=== PATIENT | female | born 1995 | race Caucasian/White ===

== ENCOUNTER → 2017-03-21 23:22 | Observation (INO) ==
[2017-03-21 19:05] LABS: Hematocrit 34.2 % (35.3-44.9); Hemoglobin 11.1 g/dL (11.5-15.4); Immature Granulocytes % 1.3 % (0-4); Lymphocytes % 8.9 %; Mean Corpuscular HGB Conc 32.5 g/dL (31.6-35.5); Mean Corpuscular Hemoglobin 26.7 pg (28.0-33.3); Mean Corpuscular Volume 82.4 fL (83.0-100.0); Mean Platelet Volume 10.3 fL (9.4-12.4); Platelet Count 294 K/mcL (140-400); Red Blood Count 4.15 M/mcL (3.82-4.97); Red Cell Distribution Width 14.4 % (11.5-14.5); Segmented Neutrophils % 84.4 %
[2017-03-21 19:06] LABS: Basophils # 0.1 K/mcL (0.0-0.2); Basophils % 0.3 %; Eosinophils # 0.1 K/mcL (0.0-0.6); Eosinophils % 0.3 %; Lymphocytes # 1.8 K/mcL (0.6-4.6); Monocytes % 4.8 %; Neutrophils # 16.7 K/mcL (1.6-8.9)
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
[2017-03-21 19:16] LABS: Prothrombin Time 10.4 Seconds (9.4-12.1)
[2017-03-21 19:18] LABS: Activated Partial Thrombo Time 23.2 Seconds (26.0-36.0)
[2017-03-21 20:49] LABS: Kleihauer-Betke-Fet Hgb Qnt 0 mL FMH (0-0)
[~2017-03-21 23:22] MED LIST: Acetaminophen 325 MG TABLET PO ONE
== END | disposition home or self-care (01) ==
LOC: 1NENULAB

== ENCOUNTER 2017-07-04 06:00 | Inpatient (IN) ==
[2017-07-04] MEDS ORDERED: Famotidine 20 MG/2 ML VIAL IVP PRN (06:15)
[2017-07-04] MEDS ORDERED: Metoclopramide 10 MG/2 ML VIAL IVP PRN (06:15)
[2017-07-04] MEDS ORDERED: Oxytocin 20 units/ LR 1000 mL 20 UNIT/1,000 ML BAG IVC SCH (06:15)
[2017-07-04] MEDS ORDERED: Ringers Solution, Lactated 1,000 ML IVC SCH (06:15)
[2017-07-04] MEDS ORDERED: miSOPROStol 25 MCG TABLET VG PRN (06:15)
[2017-07-04] MEDS ORDERED: Penicillin G Potassium 5,000,000 UNIT in D5% in Water (Mini-Bag+) 100 ML IVPB ONE (06:30)
[2017-07-04 07:00] LABS: Basophils # 0.1 K/mcL (0.0-0.2); Basophils % 0.4 %; Eosinophils # 0.1 K/mcL (0.0-0.6); Eosinophils % 0.8 %; Hematocrit 35.7 % (35.3-44.9); Hemoglobin 11.5 g/dL (11.5-15.4); Immature Granulocytes % 0.5 % (0-4); Lymphocytes # 2.9 K/mcL (0.6-4.6); Lymphocytes % 17.9 %; Mean Corpuscular HGB Conc 32.2 g/dL (31.6-35.5); Mean Corpuscular Volume 77.6 fL (83.0-100.0); Mean Platelet Volume 11.3 fL (9.4-12.4); Monocytes % 6.3 %; Neutrophils # 11.8 K/mcL (1.6-8.9); Platelet Count 262 K/mcL (140-400); Red Cell Distribution Width 15.3 % (11.5-14.5); Segmented Neutrophils % 74.1 %
[2017-07-04 07:07] LABS: Amphetamine Screen,Urine Negative ng/mL (Cutoff=1000); Barbiturate Screen,Urine Negative ng/mL (Cutoff=200); Benzodiazepines Screen,Urine Negative ng/mL (Cutoff=200); Cannabinoid Screen,Urine Positive ng/mL (Cutoff = 50); Cocaine Screen,Urine Negative ng/mL (Cutoff= 300); Opiate Screen,Urine Negative ng/mL (Cutoff=300); Phencyclidine Screen,Urine Negative ng/mL (Cutoff=25)
--- NOTE | 2017-07-04 07:40 | OB/GYN History & Physical ---
Date of Encounter: 07/04/17 Time of Encounter: 07:40 Assessment and Plan (1) 39 weeks gestation of Current visit: Yes Status: Acute Good movment. Denies contraction upon arrival. No vaginal fluid leakage or bleeding. GBS positive. - Cytotec. - Penicillin for GBS. Anticipate (2) MTHFR mutation Current visit: Yes Status: Acute History of Present Illness Chief complaint: Induction HPI: Ms. Krueger is a 22 year old female G1Po at at 39 6/7 wks gestational age with a PMH of MTHFR that presents for labor induction. She says that she has good has good movement and denies any contractions. She denies any vaginal fluid leakage or bleeding. She denies headaches, changes in vision, chest pain, nausea, vomiting, fever, dysuria, diarrhea, and constipation. Blood type: A+ GBS: positive. Rubella: positive. HbSAG: non-reactive (12/24/16) T-pallidum: negative. Varicella: positive. HIV: non-reactive. Past Med Surg Social Fam HX - Past Medical History Medical history: other Psychiatric history: no psych history - Past Surgical History Surgical History: no surgical history - Social History Smoking Status: Former smoker Smokeless Tobacco Status: No Alcohol use: none Drug use: none - Family History Mother History Unknown: Yes Obstetrical History - Pregnancies : 1 Para: 0 Term: 0 : 0 Ab's: 0 Livin Medications and Allergies 3 Allergy/AdvReac Type Severity Reaction Status Date / Time No Known Allergies Allergy Verified 07/04/17 06:49 Exam - Constitutional Constitutional: well developed, well nourished, no acute distress, obese - HEENT HEENT: EOMI, PERRL, Normocephaly, Mucus Membranes Moist - Neck Neck exam: normal inspection, trachea midline - Lungs Respiratory exam: CTAB - Cardiovascular Cardiovascular exam: RRR, +S1, +S2 - Abdomen Abdomen: Present: bowel sounds normal, gravid, non tender - Extremities Extremities exam: normal capillary refill, normal inspection, radial pulses palpable and symmetrical Deep Tendon Reflex Grade: 2+ Normal - Cervix Dilation: 4 - Comments Comments: CN II-XII intact. No focal deficits. Results Result Diagrams: 07/04/17 06:50 Abnormal lab results WBC 15.9 K/mcL (4.3-11.1) H 07/04/17 06:50 MCV 77.6 fL (83.0-100.0) L 07/04/17 06:50 MCH 25.0 pg (28.0-33.3) L 07/04/17 06:50 RDW 15.3 % (11.5-14.5) H 07/04/17 06:50 Neutrophils # 11.8 K/mcL (1.6-8.9) H 07/04/17 06:50 U Marijuana (THC) Screen Positive ng/mL (Cutoff = 50) H 07/04/17 06:50 All other labs normal. - VTE Reasons for not Prescribing Prophylaxis: Treatment not Indicated - Low risk for VTE
--- NOTE | 2017-07-04 10:15 | Anesthesia Evaluation PreOp ---
Date of Encounter: 07/04/17 Time of Encounter: 10:13 - Past History Planned Operation: vaginal del, csection G1 induction Cardiac History: Denies any Significant Hx Pulmonary History: Denies Any Significant HX DIRECTOR OF CATEGORY MANAGEMENT History: Denies Any Significant HX Other Medical History: Denies Any Significant HX Anesthesia History: Past Anesthesia (no family hx reported.) : Yes (term) Alcohol Use: none Drug use: none Medications and Allergies 3 Allergy/AdvReac Type Severity Reaction Status Date / Time No Known Allergies Allergy Verified 07/04/17 06:49 Anesthesia Results - Labs 07/04/17 06:50 Anesthesia Exam - HEENT Pupil (Motor): Pupils equal Mallampati: II Teeth: Normal Oral Opening: Greater than 3 - DIRECTOR OF CATEGORY MANAGEMENT LOC: Oriented DIRECTOR OF CATEGORY MANAGEMENT Motor: Normal RUE, Normal LUE, Normal RLE, Normal LLE, Normal Face DIRECTOR OF CATEGORY MANAGEMENT Sensory: Normal: RUE, LUE, RLE, LLE, Face - Cardiac Rhythm: Regular Murmur: None - Pulmonary Breath Sounds: bilateral Clear Respiratory Effort: Symmetrical Anesthesia Assess/Plan ASA Score: 2 Modified Joo Scale for Level of Consciousness: Cooperative, oriented, and tranquil Anesthetic Plan: General, Regional Monitoring Plan: Standard Monitors Recovery Plan: PACU
[2017-07-04] MEDS: Penicillin G Potassium 2,500,000 UNIT in D5% in Water 100 ML IVPB SCH ×2 (11:04→18:49)
[2017-07-04] MEDS ORDERED: Epidural Premix (fent/bupiv) 110 ML EP ONE ×2 (11:18→19:37)
--- NOTE | 2017-07-04 11:24 | OB Labor Progress Note ---
Date of Encounter: 07/04/17 Time of Encounter: 11:22 Labor Progress Note - Subjective Subjective: Pt states she is feeling some contractions - Cervix Cervix: 4/80/-1 - Heart Tones Heart Tones: 130/moderate/+accels/-decels - [place]: 2-4 - Interventions Interventions: AROM for scant amount of clear fluid - Plan Plan: Start pitocin per policy PCN for GBS Anticipate
[2017-07-04] MEDS ORDERED: *HR* Nalbuphine 20 MG/ML AMPUL IVP PRN (12:08)
[2017-07-04] MEDS ORDERED: *HR* Nalbuphine 20 MG/ML AMPUL ONE (12:15)
--- NOTE | 2017-07-04 14:03 | OB Labor Progress Note ---
Date of Encounter: 07/04/17 Time of Encounter: 13:58 Labor Progress Note - Subjective Subjective: Pt complaining of contraction pain and requesting epidural - Cervix Cervix: 4/80/-1 - Heart Tones Heart Tones: 15/moderate/-accels/-decels - [place] Shepherd: unable to adequately traced. IUPC placed at 45cm without difficulty. - Plan Plan: Continue pitocin per policy. PCN for GBS Anticipate
--- NOTE | 2017-07-04 14:18 | Anesthesia Procedures ---
Date of Encounter: 07/04/17 Time of Encounter: 14:02 Procedures: Anesthesia - Epidural/Spinal Patient ID/Chart reviewed: Yes Patient examined: Yes OB Eval: Gestational age: term OB Eval: : 1 OB Eval: Dilated at (cm): 4 OB Eval: Contractions: Non-stressed pattern Consent Obtained: Yes Supplemental Oxygen: None/Room Air Site Prep: Aseptic Technique, Sterile prep and drape, 0.5% Chlorhexidine/Alcohol Patient position: upright Local Anesthetic: Lidocaine 1% Amount of Local Anesthetic used: 2 Touhy Needle Gauge: 18 Touhy Needle Depth (cm): 6 Catheter Depth at Skin (cm): 10 Test Dose (1.5% Lido + Epi): Volume given (mls): 3 Test Dose Result: Negative Loading Dose: Other: from solution Loading Dose Administered: Thru Catheter Infusion Med: 0.125% Bupivacaine w/ 2 mcg/ml Fentanyl Infusion Rate (mls/hr): [address]: Tegaderm, Tape Interspace Used: L3-L4 Loss of Resistance (CAMILLA): Yes (saline) Blood: No CSF: No Paresthesia: No Procedure: vss though out, FHR stable per RN's
--- NOTE | 2017-07-04 16:58 | OB Labor Progress Note ---
Date of Encounter: 07/04/17 Time of Encounter: 16:57 Labor Progress Note - Subjective Subjective: Pt resting comfortable in bed at this time with epidural - Cervix Cervix: 5/100/-1 - Heart Tones Heart Tones: 115/moderate/-accels/-decels - [place]: IUPC 1-4 - Plan Plan: continue to increase pitocin per policy. PCN for GBS Anticipate
[2017-07-04] MEDS ORDERED: Ondansetron 4 MG/2 ML VIAL ONE (18:45)
--- NOTE | 2017-07-04 23:02 | OB/GYN Procedure Note ---
Delivery - Delivery Date: 07/04/17 Provider: Rhona Gutierrez Delivery induction: AROM, oxytocin, misoprostol Delivery monitor: external FHT, external uterine, internal uterine Anesthesia: epidural Estimated Blood Loss: 50 - Infant (s) Infant A Delivery Date: 07/04/17 Delivery Time: 22:29 Presentation: vertex Position: OA Route of delivery: Gender: Male Viability: Viable Shoulder Dystocia: encountered (see delivery details) Shoulder dystocia time elapsed: approximately 1 minute Specimens collected: cord blood Placenta: spontaneous Cord: nuchal cord, 3 umbilical vessels - Repair Episiotomy: none Laceration Description: Labial, Superficial - Complications Delivery complications: none Delivery comments: Induction of labor progressed to complete, directed bearing down efforts to of liveborn male. Vertex delivered OA with restitution through LOT to OP, attempted unable to complete restitution to ROT position head returned to LOT position with delivery of anterior shoulder, nuchal cord identified and manually reduced, attempted delivery of posterior shoulder head moved back to OP position, head and shoulders returned to LOT position mother refused to push, Dr. Lewis called to room. once she pushed posterior shoulder impacted into rectum. Maternal pushing encouraged and posterior shoulder manually reduced out of rectum and out perineum and body easily followed. Time of posterior dystocia approximately one minute. infant placed on lower portion of bed, with spontaneous cry, cord clamped and cut and placed in radiant warmer for nursing interventions. 7/9. Placenta delivered spontaneously, fundus massaged to firm, perineum with superficial labial lacerations noted. EBL 50. All sponge and needle counts correct, mother and infant left bonding skin to skin. - Disposition Mom disposition: stable in LDR Laura disposition: stable in LDR
[2017-07-05] MEDS ORDERED: Ondansetron 4 MG/2 ML VIAL IVP SCH
[2017-07-05] MEDS ORDERED: Oxytocin 20 units/ LR 1000 mL 20 UNIT/1,000 ML BAG IVC SCH (05:13)
[2017-07-05] MEDS ORDERED: Acetaminophen 325 MG TABLET PO PRN (05:13)
[2017-07-05] MEDS: Ibuprofen 600 MG TABLET PO PRN ×2 (08:32→16:48)
[2017-07-05] MEDS: Prenatal Vit/FA 1 EACH TABLET PO SCH (08:33)
--- NOTE | 2017-07-05 09:18 | OB/GYN Progress Note ---
Date of Encounter: 07/05/17 Time of Encounter: 09:16 - Assessment and Plan (1) Status post vaginal delivery Current Visit: Yes Status: Acute Patient doing well . Meeting PPD#1 milestones. Anticipate discharge tomorrow morning. (2) 39 weeks gestation of Current Visit: Yes Status: Resolved (3) Mother currently breast-feeding Current Visit: Yes Status: Acute consult today Subjective - Subjective Principal diagnosis: s/p Vaginal Delivery Interval history: Patient doing well overnight. She has good UOP, has not had a BM yet. She states she has not really eaten much yet either. She has some umbilical pain and vaginal pain. Denies any other concerns. Patient reports: voiding normally, pain well controlled, ambulating normally : doing well, bottle feeding Objective - Latest Vital Signs Latest vital signs: Vital Signs Temp Pulse Resp BP Pulse Ox 07/05/17 07:55 98.2 F 76 12 132/84 97 07/05/17 03:45 98.0 F 73 16 145/94 100 07/05/17 02:30 97.6 F 65 16 141/86 98 07/05/17 01:30 98.5 F 72 16 150/85 99 Intake and Output 07/04/17 07/05/17 07/05/17 23:59 07:59 15:59 Intake Total 500 / 500 Output Total 2200 / 2200 Balance -1700 / -1700 Intake: Oral 500 / 500 Output: Urine 2200 / 2200 Other: # Voids 1 Weight 89.3 kg Patient Weight 07/05/17 23:59 Weight 89.3 kg - Exam Lungs: bilateral: normal Chest: Normal S1, Normal S2 Extremities: Present: normal. Absent: tenderness, edema Abdomen: Present: normal appearance, soft, tenderness Uterus: Present: normal, firm Uterus Position: 1 Finger Below Umbilicus - Attending Attestation I examined this patient and my medical decision-making was reviewed with the Resident Physician. I agree with the documented findings, disposition and treatment plan as described except to the extent set forth below.
[2017-07-06] MEDS ORDERED: FLUARIX QUAD 2017-18 36MOS UP/PF 0.5 ML SYRINGE IM ONE (06:45)
[2017-07-06 08:26] VITALS: BP 133/91
[2017-07-06] MEDS: Prenatal Vit/FA 1 EACH TABLET PO SCH (09:20)
--- NOTE | 2017-07-06 09:27 | Discharge Summary ---
Date of Encounter: 07/06/17 Time of Encounter: 09:25 - Discharge Diagnosis (1) Status post vaginal delivery Priority: Primary Status: Acute Comments: Doing well S/P vaginal delivery Pain well controlled Lochia light and without clots Voiding and passing flatus without difficulty Discharge home today - Discharge Medications Prescriptions: Ibuprofen [Motrin] 600 mg PO Q6HR PRN #30 tablet PRN Reason: Cramping Docusate [Colace] 100 mg PO BID #20 capsule Home Medications: Docusate [Colace] 100 mg PO BID #20 capsule 07/06/17 [Rx] Ferrous Sulfate 325 mg PO DAILY tablet 07/06/17 [Rx] Ibuprofen [Motrin] 600 mg PO Q6HR PRN #30 tablet 07/06/17 [Rx] Vit/FA 1 each PO DAILY tablet 07/06/17 [Rx] Allergies/Adverse Reactions: 3 Allergy/AdvReac Type Severity Reaction Status Date / Time No Known Allergies Allergy Verified 07/04/17 06:49 Data Procedures and tests throughout hospitalization: Laboratory Tests 07/04/17 07/04/17 06:50 06:50 WBC 15.9 H RBC 4.60 Hgb 11.5 Hct 35.7 MCV 77.6 L MCH 25.0 L MCHC 32.2 RDW 15.3 H Plt Count 262 MPV 11.3 Immature Gran % 0.5 Seg Neutrophils % 74.1 Lymphocytes % 17.9 Monocytes % 6.3 Eosinophils % 0.8 Basophils % 0.4 Neutrophils # 11.8 H Lymphocytes # 2.9 Monocytes # 1.0 Eosinophils # 0.1 Basophils # 0.1 Urine Opiates Screen Negative Ur Barbiturates Screen Negative Ur Phencyclidine Scrn Negative Ur Amphetamines Screen Negative U Benzodiazepines Scrn Negative Urine Cocaine Screen Negative U Marijuana (THC) Screen Positive H Date of admission: 07/04/17 06:12 Primary care physician: PCP NONE Consults: 07/05/17 05:13 Consult to [facility] Caretaker [CONS] Routine Comment: Vaginal delivery, consult needed Discharging clinician: Delmis Alvarez Anticipated date of discharge: 07/06/17 - Patient Status Disposition: Home, Self-Care Condition: Good Functional capacity at discharge: independent ambulation Overall status at discharge: patient is progressing back to baseline - Discharge Instructions Follow Up With: NONE,PCP [Primary Care Provider] - Osiris Lewis MD [Partnered Physician] - - Diet and Activity Activity: increase activity as tolerated Diet: regular diet Hospital Course Reason for admission: active labor, IUP at term Delivery: Episiotomy: none Other procedures: none complications: none Discharge diagnosis: IUP at term delivered baby: male Time Attestation: Total time spent providing and/or coordinating discharge services: Time Spent: Less than 30 minutes Exam - Constitutional Vitals: Temp Pulse Resp BP Pulse Ox 98.2 F 62 16 133/91 98 07/06/17 08:15 07/06/17 08:15 07/06/17 08:15 07/06/17 08:15 07/06/17 08:15 General appearance IM: cooperative, A&O X 3, pleasant - Respiratory Respiratory exam: Present: CTAB - Cardiovascular Cardiovascular exam IM: Present: RRR, +S1, +S2 - GI/Abdominal GI/Abdominal exam IM: normal bowel sounds, soft - Uterine Tone: Firm Uterus Position: 2 Fingers Below Umbilicus, Midline - Extremities Exam Extremities exam IM: Present: normal capillary refill, normal inspection, radial pulses palpable and symmetrical - Neurological Exam Neurological exam: alert, oriented X3
== END 2017-07-06 14:15 | disposition home or self-care (01) | DRG 560 ==
LOC: 1NENULAB 06:12 → 1NENUOBS 07-05 01:54
PROVIDERS: ADMIT Student in an Organized Health Care Education/Training Program; ATTEND Student in an Organized Health Care Education/Training Program

== ENCOUNTER 2019-03-20 12:05 | Observation (INO) ==
--- NOTE | 2019-03-20 12:55 | Emergency Department Note ---
Disposition Clinical Impression: Vaginal hemorrhage Disposition: Admitted As Inpatient Condition: Serious Time of Disposition: 12:45 HPI - General Chief complaint: ED Vaginal Bleeding Stated complaint: miscarriage Time Seen by Provider: 03/20/19 12:21 Source: patient Limitations: no limitations Nursing Notes Reviewed: Yes Vital Signs Reviewed: Yes - History of Present Illness HPI Narrative: Concern about status. Suprapubic cramping and vaginal bleeding 3 hours. Known nonviable IUP at ap proximately 8 weeks gestational age was found on ultrasound 2 weeks ago. Clinical miscarriage started this morning. No syncope chest pain or shortness of breath. Patient's OB doctor has been following her declining a ct. Patient has a 2-year-old child which she did not require A RHOGAM shot for. Pt Subjective Complaint: abdominal pain, vaginal bleeding Onset (ago): hour(s) Consistency: intermittent Location: pelvis Radiation: pelvis Pain Scale: 2 Quality: cramping Improves with: none Worsens with: none Associated symptoms: Reports: denies other symptoms Vaginal bleeding: heavy, clots Confirmation of LMP: Yes : yes - Related Data Home Medications Medication Instructions Recorded Confirmed No Known Home Drugs 03/10/19 03/20/19 Allergies Allergy/AdvReac Type Severity Reaction Status Date / Time No Known Allergies Allergy Verified 03/10/19 22:25 Genitourinary: Reports: as per HPI PMH - Social History Smoking Status: Former smoker Alcohol use: Reports: none Drug use: Reports: none Physical Exam - General Limitations: no limitations General appearance: alert - Head Head exam: atraumatic, normocephalic, normal inspection - Eye Eye exam: Present: normal appearance, PERRL, EOMI - Expanded Eye Exam Pupils: Left: reactive - ENT ENT exam: normal exam, normal oropharynx, mucous membranes moist - Expanded ENT Exam External ear exam: Present: normal external inspection Mouth exam: Present: normal external inspection Teeth exam: Present: normal inspection Throat exam: Present: normal inspection - Neck Neck exam: Present: normal inspection, full ROM, trachea midline - Chest Chest inspection: Present: normal inspection, symmetric chest wall rise - Respiratory Respiratory exam: Present: normal lung sounds bilaterally - Cardiovascular Cardiovascular exam: Present: regular rate, normal rhythm, normal heart sounds - Abdominal Exam Abdominal exam: Present: soft, Non-Tender - Extremities Exam Extremities exam: Present: normal inspection, full ROM. Absent: tenderness, pedal edema - Expanded Upper Extremity Exam Shoulder exam: Present: normal inspection, full ROM Arm exam: Present: normal inspection, full ROM Elbow exam: Present: normal inspection, full ROM Forearm/Wrist exam: Present: normal inspection, full ROM Hand exam: Present: normal inspection, full ROM Vascular exam: Normal: capillary refill, radial pulse - Expanded Lower Extremity Exam Hip/Pelvis exam: Present: normal inspection, full ROM Upper leg exam: Present: normal inspection, full ROM Knee exam: Present: normal inspection, full ROM Lower leg exam: Present: normal inspection, full ROM Ankle exam: Present: normal inspection, full ROM Foot/toe exam: Present: normal inspection, full ROM Neurovascular/Tendon exam: Absent: motor deficit, sensory deficit, tendon deficit - Back Exam Back exam: Present: normal inspection, full ROM. Absent: tenderness - Neurological Exam Neurological exam: Present: alert, oriented X3 - Expanded Neurological Exam Patient oriented to: Present: person, place, time Coma Scale Eye Opening: Spontaneous Coma Scale Motor Response: Obeys Commands Coma Scale Verbal Response: Oriented Coma Scale Total: 15 - Psychiatric Psychiatric exam: Present: normal affect, normal mood, anxious. Absent: homicidal ideation, suicidal ideation - Skin Skin exam: Present: warm, dry, intact, normal color Course Course Narrative: Patient's hemorrhage began at 9:30 in had not been constant, but she has had multiple episodes of cramping and clots being passed. Episodes in the first hour in the ER. Patient stood up to change her clothing and had a near-syncopal episode. She became diaphoretic and tachycardic with out chest pain or collapsed for head injury. Tachycardia resolved within a few minutes. No significant periods of hypotension. Patient was seen emergently in the ER by the OB physician Dr. Benites who decided to forego the ultrasound and due to her late first trimester miscarriage with persistent hemorrhage to appropriately go immediately to the operating room. Patient left the ER in stable and improved condition with stable hemoglobin Vital Signs Temperature 98.5 F 03/20/19 12:21 Pulse Rate 99 03/20/19 12:21 Respiratory Rate 16 03/20/19 12:21 Blood Pressure 120/65 03/20/19 12:21 O2 Sat by Pulse Oximetry 99 03/20/19 12:21 Temperature 98.3 F 03/20/19 21:14 Pulse Rate 80 03/20/19 21:14 Respiratory Rate 16 03/20/19 21:14 Blood Pressure 111/72 03/20/19 21:14 O2 Sat by Pulse Oximetry 97 03/20/19 21:14 Oxygen Delivery Oxygen Delivery Nasal Cannula OB/Uterine Contractions - Lab Data Result diagrams: 03/20/19 18:43 03/20/19 13:16 Lab Results 03/20/19 03/20/19 03/20/19 Range/Units 13:16 13:16 13:16 WBC 10.5 (4.3-11.1) K/mcL RBC 4.75 (3.82-4.97) M/mcL Hgb 12.6 (11.5-15.4) g/dL Hct 38.7 (35.3-44.9) % MCV 81.5 L (83.0-100.0) fL MCH 26.5 L (28.0-33.3) pg MCHC 32.6 (31.6-35.5) g/dL RDW 13.5 (11.5-14.5) % Plt Count 254 (140-400) K/mcL MPV 9.9 (9.4-12.4) fL Sodium 138 (136-145) mEq/L Potassium 3.8 (3.5-5.1) mEq/L Chloride 104 (98-107) mEq/L Carbon Dioxide 21 L (23-29) mEq/L BUN 10 (6-20) mg/dL Creatinine 0.58 L (0.60-1.20) mg/dL Est GFR ( Amer) > 60 (> 60) Est GFR (Non-Af Amer) > 60 (> 60) BUN/Creatinine Ratio 17 (6-26) Glucose 124 H (70-105) mg/dL Calculated Osmolality 286 (280-300) Calcium 9.3 (8.6-10.3) mg/dL Beta HCG, Quant 3310 H (Less than 5) mIU/mL Crossmatch See Detail 03/20/19 Range/Units 16:18 WBC (4.3-11.1) K/mcL RBC (3.82-4.97) M/mcL Hgb 9.0 L D (11.5-15.4) g/dL Hct 28.2 L (35.3-44.9) % MCV (83.0-100.0) fL MCH (28.0-33.3) pg MCHC (31.6-35.5) g/dL RDW (11.5-14.5) % Plt Count (140-400) K/mcL MPV (9.4-12.4) fL Sodium (136-145) mEq/L Potassium (3.5-5.1) mEq/L Chloride (98-107) mEq/L Carbon Dioxide (23-29) mEq/L BUN (6-20) mg/dL Creatinine (0.60-1.20) mg/dL Est GFR ( Amer) (> 60) Est GFR (Non-Af Amer) (> 60) BUN/Creatinine Ratio (6-26) Glucose (70-105) mg/dL Calculated Osmolality (280-300) Calcium (8.6-10.3) mg/dL Beta HCG, Quant (Less than 5) mIU/mL Crossmatch - EKG Data EKG attestation: Yes I reviewed and interpreted this EKG. EKG results narrative: Sinus tachycardia. No acute injury pattern. Intervals unremarkable Critical Care Time Critical Care Time: Yes Total Critical Care Time: 35 Attestation: Severe vaginal bleeding with miscarriage requiring stabilization with emergent IV fluids, type and cross, and emergent OB evaluation with transport to the operating room.
[2019-03-20 13:31] LABS: Hematocrit 38.7 % (35.3-44.9); Hemoglobin 12.6 g/dL (11.5-15.4); Mean Corpuscular HGB Conc 32.6 g/dL (31.6-35.5); Mean Corpuscular Hemoglobin 26.5 pg (28.0-33.3); Mean Corpuscular Volume 81.5 fL (83.0-100.0); Mean Platelet Volume 9.9 fL (9.4-12.4); Platelet Count 254 K/mcL (140-400); Red Blood Count 4.75 M/mcL (3.82-4.97); Red Cell Distribution Width 13.5 % (11.5-14.5); White Blood Count 10.5 K/mcL (4.3-11.1)
[2019-03-20 14:00] LABS: BUN/Creatinine Ratio 17 (6-26); Blood Urea Nitrogen 10 mg/dL (6-20); Calcium 9.3 mg/dL (8.6-10.3); Carbon Dioxide 21 mEq/L (23-29); Chloride 104 mEq/L (98-107); Glucose 124 mg/dL (70-105); Osmolality,Calculated 286 (280-300); Potassium 3.8 mEq/L (3.5-5.1); Sodium 138 mEq/L (136-145); eGFR For African Americans > 60 (> 60); eGFR For Non-African Americans > 60 (> 60)
[2019-03-20] MEDS ORDERED: 0.9 % Sodium Chloride 1,000 ML ONE (15:02)
[2019-03-20] MEDS ORDERED: *HR* Midazolam HCl 2 MG/2 ML VIAL ONE (15:17)
[2019-03-20] MEDS ORDERED: *HR* Propofol 200 MG/20 ML VIAL IVP ONE (15:17)
[2019-03-20] MEDS ORDERED: *HR* FentaNYL (PF) 100 MCG/2 ML VIAL ONE (15:17)
--- NOTE | 2019-03-20 15:19 | Anesthesia Evaluation PreOp ---
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 Significant HX Other Medical History: Denies Any Significant HX, Other (spont AB, 8wks ega) Anesthesia History: Past Anesthesia (none, no known family hx of anes complications) Alcohol Use: none Drug use: none Medications and Allergies No Known Home Drugs 03/10/19 [History] Allergy/AdvReac Type Severity Reaction Status Date / Time No Known Allergies Allergy Verified 03/10/19 22:25 - Meds/Allergy Pre-op Review Medications Reviewed: Yes Allergies Reviewed: Yes Beta Blockers on Current Med List: No Anesthesia Results - Labs 03/20/19 13:16 03/20/19 13:16 Anesthesia Exam Vital Signs/O2 Sat, Most Current Temp Pulse Resp BP Pulse Ox 98.5 F 82 16 108/72 100 03/20/19 12:21 03/20/19 14:13 03/20/19 14:13 03/20/19 14:13 03/20/19 14:13 Weight: 76kg NPO (# of Hours): >8 - HEENT Pupil (Motor): Pupils equal, EOMI Mallampati: II Oral Opening: Greater than 3 - COMPUTER SECURITY MANAGER LOC: Oriented COMPUTER SECURITY MANAGER Motor: Normal RUE, Normal LUE, Normal RLE, Normal LLE, Normal Face COMPUTER SECURITY MANAGER Sensory: Normal: RUE, LUE, RLE, LLE, Face - Cardiac Rhythm: Regular - Pulmonary Breath Sounds: bilateral Clear Respiratory Effort: Symmetrical Anesthesia Assess/Plan ASA Score: 2, E Level of consciousness: Cooperative Anesthetic Plan: General Monitoring Plan: Standard Monitors Recovery Plan: PACU
[2019-03-20] MEDS ORDERED: *HR* Succinylcholine 200 MG/10 ML VIAL IVP ONE (15:20)
[2019-03-20] MEDS ORDERED: Lidocaine -MPF 4% 5 ML AMPUL ONE (15:20)
[2019-03-20] MEDS ORDERED: Lidocaine -MPF 2% 2 ML VIAL ONE (15:20)
[2019-03-20] MEDS ORDERED: *HR* Rocuronium Bromide 50 MG/5 ML VIAL ONE (15:20)
[2019-03-20] MEDS ORDERED: ceFAZolin 2,000 MG in Water for inj. (sterile) 20 ML IVP ONE (15:35)
[2019-03-20] MEDS ORDERED: Ondansetron 4 MG/2 ML VIAL ONE (15:40)
[2019-03-20] MEDS ORDERED: Dexamethasone 4 MG/ML VIAL ONE (15:49)
[2019-03-20] MEDS ORDERED: Methylergonovine 0.2 MG/ML AMPUL IM ONE (15:59)
[2019-03-20] MEDS ORDERED: *HR* HYDROmorphone (PF) 1 MG/ML SYRINGE IVP PRN (16:19)
[2019-03-20] MEDS ORDERED: Ondansetron 4 MG/2 ML VIAL IVP ONE (16:19)
[2019-03-20] MEDS ORDERED: *HR* Promethazine 25 MG/ML VIAL IVP PRN (16:19)
[2019-03-20] MEDS ORDERED: *HR* Meperidine 25 MG/ML SYRINGE IVP PRN (16:19)
[2019-03-20] MEDS ORDERED: *HR* OxyCODONE Immed Rel 5 MG TABLET PO PRN (16:19)
[2019-03-20 16:37] LABS: Hematocrit 28.2 % (35.3-44.9)
[2019-03-20] MEDS ORDERED: Ringers Solution, Lactated 1,000 ML ONE (16:44)
--- NOTE | 2019-03-20 16:59 | Anesthesia Evaluation Post Op ---
Date of Encounter: 03/20/19 Time of Encounter: 16:58 - Vital Signs Vital Signs: Vital Signs/O2 Sat, Most Current Temp Pulse Resp BP Pulse Ox 97.9 F 91 16 104/63 98 03/20/19 16:22 03/20/19 16:42 03/20/19 16:42 03/20/19 16:42 03/20/19 16:42 - Lungs Lungs: Clear Ascult./Percussion - Airway Airway: Non-obstructed - Cardiovascular Regular Rate - Mental Status Mental Status: Alert & Oriented, Answers Appropriately - Pain Pain Scale: 0 Pain Scale used: Numeric (1 - 10) - Nausea Vomiting Nausea Vomiting: Not Present - Hydration Hydration: Ice chips - Discharge PostOp Status: Transfer Patient to floor
[2019-03-20] MEDS ORDERED: Ibuprofen 600 MG TABLET PO PRN (17:08)
[2019-03-20] MEDS ORDERED: Ringers Solution, Lactated 1,000 ML IVC SCH (17:08)
[2019-03-20] MEDS ORDERED: 0.9 % Sodium Chloride 500 ML ONE (18:38)
--- NOTE | 2019-03-20 18:54 | Event Note ---
Date of Encounter: 03/20/19 Time of Encounter: 18:51 Called to see patient due to patient having an episode of distress. She had gone to the bathroom to attempt to void and became quite weak. Associated going to pass out and became extremely pale. She reports dizziness. She did not have loss of consciousness. She was having minimal bleeding she status post suction D&E earlier this afternoon at approximately 1600. She had had a hemoglobin of 12.8 prior to surgery it was 9.4 at 4:15 this afternoon. She had quite a bit of bleeding prior to surgery and then some orthostatic revealed during the D&C was approximately 450. Patient's blood pressure 1 hour after room was 90/60 pulse is 108. Rapid response was called the was canceled shortly after my arrival to her room. We did give patient back to bed and her color did improve as well as her mental status. She denies any abnormal pains just some low cramping and minimal bleeding. We will obtain stat H&H will get an transfused 1 unit of packed red blood cells and continued observation.
[2019-03-20 18:55] LABS: Basophils # 0.1 K/mcL (0.0-0.2); Basophils % 0.3 %; Hematocrit 31.4 % (35.3-44.9); Immature Granulocytes % 0.6 % (0-4); Lymphocytes # 1.3 K/mcL (0.6-4.6); Mean Corpuscular HGB Conc 31.8 g/dL (31.6-35.5); Mean Corpuscular Hemoglobin 27.1 pg (28.0-33.3); Mean Corpuscular Volume 85.1 fL (83.0-100.0); Mean Platelet Volume 10.1 fL (9.4-12.4); Monocytes # 0.2 K/mcL (0.0-1.3); Monocytes % 0.9 %; Neutrophils # 19.5 K/mcL (1.6-8.9); Platelet Count 280 K/mcL (140-400); Red Blood Count 3.69 M/mcL (3.82-4.97); Red Cell Distribution Width 13.5 % (11.5-14.5); Segmented Neutrophils % 92.2 %; White Blood Count 21.1 K/mcL (4.3-11.1)
[2019-03-20 22:34] LABS: Hematocrit 32.4 % (35.3-44.9); Hemoglobin 10.7 g/dL (11.5-15.4)
[2019-03-21 05:44] LABS: Basophils % 0.1 %; Hematocrit 26.9 % (35.3-44.9); Immature Granulocytes % 0.4 % (0-4); Lymphocytes # 1.1 K/mcL (0.6-4.6); Lymphocytes % 11.5 %; Mean Corpuscular HGB Conc 32.3 g/dL (31.6-35.5); Mean Corpuscular Hemoglobin 26.4 pg (28.0-33.3); Mean Corpuscular Volume 81.8 fL (83.0-100.0); Mean Platelet Volume 10.2 fL (9.4-12.4); Monocytes # 0.4 K/mcL (0.0-1.3); Monocytes % 3.8 %; Platelet Count 208 K/mcL (140-400); Red Blood Count 3.29 M/mcL (3.82-4.97); Red Cell Distribution Width 14.2 % (11.5-14.5); Segmented Neutrophils % 84.2 %
[2019-03-21 05:46] LABS: Hemoglobin 8.7 g/dL (11.5-15.4); Neutrophils # 8.3 K/mcL (1.6-8.9); White Blood Count 9.8 K/mcL (4.3-11.1)
--- NOTE | 2019-03-21 07:05 | Discharge Summary ---
Date of Encounter: 03/21/19 Time of Encounter: 07:05 - Discharge Diagnosis (1) Acute blood loss anemia Priority: Secondary Status: Acute Comments: Doing better now with minimal bleeding. She did have orthostatic episode and received 1 unit of PRBC's, her HGB is now 8.7 and she is assymptomatic and declines another unit of PRBC's. (2) Incomplete Priority: Primary Status: Acute Comments: s/p d&c and is now stable. - Discharge Medications Prescriptions: New Ferrous Sulfate 325 mg PO BID #60 tablet. Ibuprofen [Motrin] 600 mg PO Q6HR PRN #30 tablet PRN Reason: post op pain Home Medications: Ferrous Sulfate 325 mg PO BID #60 tablet. 03/21/19 [Rx] Ibuprofen [Motrin] 600 mg PO Q6HR PRN #30 tablet 03/21/19 [Rx] Allergies/Adverse Reactions: Allergy/AdvReac Type Severity Reaction Status Date / Time No Known Allergies Allergy Verified 03/10/19 22:25 Data Procedures and tests throughout hospitalization: Laboratory Tests 03/20/19 03/20/19 03/20/19 13:16 13:16 13:16 WBC 10.5 RBC 4.75 Hgb 12.6 Hct 38.7 MCV 81.5 L MCH 26.5 L MCHC 32.6 RDW 13.5 Plt Count 254 MPV 9.9 Immature Gran % Seg Neutrophils % Lymphocytes % Monocytes % Eosinophils % Basophils % Neutrophils # Lymphocytes # Monocytes # Eosinophils # Basophils # Sodium 138 Potassium 3.8 Chloride 104 Carbon Dioxide 21 L BUN 10 Creatinine 0.58 L Est GFR ( Amer) > 60 Est GFR (Non-Af Amer) > 60 BUN/Creatinine Ratio 17 Glucose 124 H Calculated Osmolality 286 Calcium 9.3 Beta HCG, Quant 3310 H Crossmatch See Detail 03/20/19 03/20/19 03/20/19 16:18 18:43 22:24 WBC 21.1 H D RBC 3.69 L Hgb 9.0 L D 10.0 L 10.7 L Hct 28.2 L 31.4 L 32.4 L MCV 85.1 MCH 27.1 L MCHC 31.8 RDW 13.5 Plt Count 280 MPV 10.1 Immature Gran % 0.6 Seg Neutrophils % 92.2 Lymphocytes % 6.0 Monocytes % 0.9 Eosinophils % 0.0 Basophils % 0.3 Neutrophils # 19.5 H Lymphocytes # 1.3 Monocytes # 0.2 Eosinophils # 0.0 Basophils # 0.1 Sodium Potassium Chloride Carbon Dioxide BUN Creatinine Est GFR ( Amer) Est GFR (Non-Af Amer) BUN/Creatinine Ratio Glucose Calculated Osmolality Calcium Beta HCG, Quant Crossmatch 03/21/19 05:27 WBC 9.8 D RBC 3.29 L Hgb 8.7 L D Hct 26.9 L MCV 81.8 L MCH 26.4 L MCHC 32.3 RDW 14.2 Plt Count 208 MPV 10.2 Immature Gran % 0.4 Seg Neutrophils % 84.2 Lymphocytes % 11.5 Monocytes % 3.8 Eosinophils % 0.0 Basophils % 0.1 Neutrophils # 8.3 Lymphocytes # 1.1 Monocytes # 0.4 Eosinophils # 0.0 Basophils # 0.0 Sodium Potassium Chloride Carbon Dioxide BUN Creatinine Est GFR ( Amer) Est GFR (Non-Af Amer) BUN/Creatinine Ratio Glucose Calculated Osmolality Calcium Beta HCG, Quant Crossmatch Labs on day of discharge: Labs from last 24 hours 03/21/19 03/20/19 03/20/19 05:27 22:24 18:43 WBC 9.8 D 21.1 H D RBC 3.29 L 3.69 L Hgb 8.7 L D 10.7 L 10.0 L Hct 26.9 L 32.4 L 31.4 L MCV 81.8 L 85.1 MCH 26.4 L 27.1 L MCHC 32.3 31.8 RDW 14.2 13.5 Plt Count 208 280 MPV 10.2 10.1 Immature Gran % 0.4 0.6 Seg Neutrophils % 84.2 92.2 Lymphocytes % 11.5 6.0 Monocytes % 3.8 0.9 Eosinophils % 0.0 0.0 Basophils % 0.1 0.3 Neutrophils # 8.3 19.5 H Lymphocytes # 1.1 1.3 Monocytes # 0.4 0.2 Eosinophils # 0.0 0.0 Basophils # 0.0 0.1 Sodium Potassium Chloride Carbon Dioxide BUN Creatinine Est GFR ( Amer) Est GFR (Non-Af Amer) BUN/Creatinine Ratio Glucose Calculated Osmolality Calcium Beta HCG, Quant Crossmatch 03/20/19 03/20/19 03/20/19 16:18 13:16 13:16 WBC RBC Hgb 9.0 L D Hct 28.2 L MCV MCH MCHC RDW Plt Count MPV Immature Gran % Seg Neutrophils % Lymphocytes % Monocytes % Eosinophils % Basophils % Neutrophils # Lymphocytes # Monocytes # Eosinophils # Basophils # Sodium 138 Potassium 3.8 Chloride 104 Carbon Dioxide 21 L BUN 10 Creatinine 0.58 L Est GFR ( Amer) > 60 Est GFR (Non-Af Amer) > 60 BUN/Creatinine Ratio 17 Glucose 124 H Calculated Osmolality 286 Calcium 9.3 Beta HCG, Quant 3310 H Crossmatch See Detail 03/20/19 13:16 WBC 10.5 RBC 4.75 Hgb 12.6 Hct 38.7 MCV 81.5 L MCH 26.5 L MCHC 32.6 RDW 13.5 Plt Count 254 MPV 9.9 Immature Gran % Seg Neutrophils % Lymphocytes % Monocytes % Eosinophils % Basophils % Neutrophils # Lymphocytes # Monocytes # Eosinophils # Basophils # Sodium Potassium Chloride Carbon Dioxide BUN Creatinine Est GFR ( Amer) Est GFR (Non-Af Amer) BUN/Creatinine Ratio Glucose Calculated Osmolality Calcium Beta HCG, Quant Crossmatch - Impressions Doing well, minimal bleeding, ambulating and voiding without orthostatic sx's. She reports minimal pain. 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 Attestation: Total time spent providing and/or coordinating discharge services: Exam - Constitutional Vitals: Temp Pulse Resp BP Pulse Ox 98.2 F 81 14 97/60 98 03/21/19 04:35 03/21/19 04:35 03/21/19 04:35 03/21/19 04:35 03/21/19 04:35 General appearance IM: A&O X 3 - Respiratory Respiratory exam: Present: CTAB - Cardiovascular Cardiovascular exam IM: Present: RRR - GI/Abdominal GI/Abdominal exam IM: normal bowel sounds - Uterus Position: 2 Fingers Above Umbilicus - Extremities Exam Extremities exam IM: Present: full ROM - Neurological Exam Neurological exam: oriented X3 - VTE Documentation of Mechanical Device: Intermittent pneumatic compression device
[2019-03-21 08:03] VITALS: BP 87/53
--- NOTE | 2019-03-21 12:52 | Electrocardiograph Report ---
[place] [id number] Test Date: 2019-03-20 Pat Name: Beatris Krueger Department: [id number] Room: 1N9 Gender: F Office Rn: : 1995 Requested By: Sinan Esposito Order Number: [id number] Reading MD: Maru Mantilla Measurements Intervals [place] Rate: 110 P: 52 [place]: 126 QRS: 87 QRSD: 77 T: 18 QT: 317 QTc: 429 Interpretive Statements Sinus tachycardia Electronically Signed On 03-21-2019 12:50:55 EDT by Maru Mantilla
--- NOTE | 2019-04-28 14:33 | OB/GYN Procedure Note ---
Suction D&C - Diagnosis Date of procedure: 03/20/19 Pre-op diagnosis: missed Post-op diagnosis: same - Procedure Procedure: suction D&C Surgeon: Zain Benites Was there an bindery assistant present: No Anesthesia Type: General Estimated blood loss (cc): 100 Complications: none Fluids: crystalloid Specimen: products of conception Disposition: PACU Narrative: Description procedure: Patient was taken operating room where general anesthesia was administered. She was prepped draped in usual sterile fashion. R was drained of clear urine. Cervix is visualized and grasped with single-tooth tenaculum. Cervix dilated large size Hanks dilator. 8 mm suction curet was passed wall times revealing typical products conception. Once was minimal residual tissue being obtained suction curet was removed and gentle sharp curettage was performed revealing smooth uterine cavity and minimal residual tissue. Suction curette was again passed several times uterus was massaged until firm patient was given Methergine 0.2 mg. Patient tolerated procedure well and was taken recovery in good condition.
== END 2019-03-21 11:50 | disposition home or self-care (01) ==
LOC: EMEROOARM 12:05 → 1NENUOBS 12:05
PROVIDERS: ADMIT Obstetrics & Gynecology; ATTEND Obstetrics & Gynecology